=== PATIENT | male | born 1990 | race Caucasian/White ===

== ENCOUNTER 2023-05-08 20:45 | Outpatient (OUT) | payer OTHER, SELFPAY | END 2023-05-08 20:46 | disposition home or self-care (01) | LOC: SLEEP 20:46 | PROVIDERS: PCP Nurse Practitioner Family; Visit Provider Nurse Practitioner Family | DX: G47.33 Obstructive sleep apnea (adult) (pediatric) (principal) | CPT/HCPCS: 95811 ==